=== PATIENT | female | born 1955 | race Caucasian/White ===

== ENCOUNTER → 2019-02-17 | Outpatient (CLI) | payer OTHER ==
[~2019-02-17] MED LIST: ALPRazolam 1MG TAB ONE
== END | disposition home or self-care (01) ==
LOC: RAD 12:46
PROVIDERS: ATTEND Nurse Practitioner
DX: M47.813 Spondylosis without myelopathy or radiculopathy, cervicothoracic region (principal); M25.78 Osteophyte, vertebrae
CPT/HCPCS: 72141